=== PATIENT | female | born 1955 ===

== ENCOUNTER → 2018-06-19 | Outpatient (CLI) | payer OTHER ==
[2018-06-19 13:59] LABS: Source, Urine Clean Catch
[2018-06-19 15:28] LABS: Appearance, Urine Clear (Clear); Bilirubin, Urine Neg (Neg); Blood, Urine Neg (Neg); Color, Urine Yellow (P-Yellow); Glucose Qualitative, Urine Neg (Neg); Ketones, Urine Neg (Neg); Leukocyte Esterase, Urine Neg (Neg); Nitrite, Urine Neg (Neg); Protein, Urine Neg (Neg); Specific Gravity, Urine 1.005 (1.003-1.022); Urobilinogen, Urine NORM (Normal)
== END ==
LOC: LAB 09:16 → LAB SHORT 09:16
PROVIDERS: Obstetrics & Gynecology
DX: R35.0 Frequency of micturition (principal)
CPT/HCPCS: 81003

== ENCOUNTER → 2019-08-15 | Outpatient (CLI) | payer OTHER ==
[2019-08-15 11:16] LABS: Source, Urine Clean Catch
[2019-08-15 14:31] LABS: Bilirubin, Urine Neg (Neg); Blood, Urine Neg (Neg); Glucose Qualitative, Urine Neg (Neg); Ketones, Urine Neg (Neg); Leukocyte Esterase, Urine Neg (Neg); Nitrite, Urine Neg (Neg); Protein, Urine Neg (Neg); Urobilinogen, Urine NORM (Normal)
[2019-08-15 14:35] LABS: Appearance, Urine Clear (Clear); Color, Urine Pale Yellow (P-Yellow)
[2019-08-16 14:49] LABS: Candida species (DNA Probe) Negative (NEGATIVE); G. vaginalis (DNA Probe) Negative (NEGATIVE); T. vaginalis (DNA Probe) Negative (NEGATIVE)
== END ==
LOC: LAB SHORT 10:45 → LAB 10:45
PROVIDERS: Obstetrics & Gynecology
DX: N76.0 Acute vaginitis (principal); N32.81 Overactive bladder
CPT/HCPCS: 81003; 87480; 87510; 87660

== ENCOUNTER → 2022-03-10 | Outpatient (CLI) | payer OTHER ==
[2022-03-11 13:59] LABS: Candida species (DNA Probe) Positive (NEGATIVE); G. vaginalis (DNA Probe) Negative (NEGATIVE); T. vaginalis (DNA Probe) Negative (NEGATIVE)
== END | disposition home or self-care (01) ==
LOC: LAB SHORT 13:44
PROVIDERS: Obstetrics & Gynecology
DX: N76.0 Acute vaginitis (principal)
CPT/HCPCS: 87480; 87510; 87660

== ENCOUNTER 2022-05-02 13:45 | Emergency (ER) | payer OTHER ==
[~2022-05-02] VITALS: Ht 157.5 cm; Wt 63.5 kg
[2022-05-02] MEDS ORDERED: NEURONTIN300 MG PO (14:25)
[2022-05-02] MEDS ORDERED: ALLERGY RELIEF5 M1 PO (14:26)
[2022-05-02] MEDS ORDERED: PYRI100 PO (14:26)
[2022-05-02] MEDS ORDERED: CENTRUM SILVER1 EAC2 PO (14:26)
[2022-05-02] MEDS ORDERED: CREON DR 12,001 EACH PO (14:27)
[2022-05-02] MEDS ORDERED: Echinacea400 MG PO (14:28)
[2022-05-02] MEDS ORDERED: Garlic500 MG PO (14:29)
[2022-05-02] MEDS ORDERED: FISH OIL-VIT D1 EACH PO (14:29)
[2022-05-02] MEDS ORDERED: GEMF600 PO (14:30)
[2022-05-02] MEDS ORDERED: Magnesium250 MG PO (14:30)
[2022-05-02] MEDS ORDERED: HAIR, SKIN AND1 EAC3 PO (14:30)
[2022-05-02] MEDS ORDERED: St. John's Wor300 M1 PO (14:31)
[2022-05-02] MEDS ORDERED: Vitamin B Comple1 EA PO (14:31)
[2022-05-02 14:36] LABS: Hematocrit 39.2 % (33.0-51.0); Hemoglobin 13.3 g/dL (11.5-16.0); Mean Corpuscular HGB 31.7 pg (26.0-34.0); Mean Corpuscular HGB Conc 33.9 g/dL (31.5-36.5); Mean Corpuscular Volume 93 fL (80-100); Mean Platelet Volume 10.6 fL (9.1-12.4); Platelet Count 433 K/mm3 (150-400); RDW Coefficient Variation 13.6 % (11.7-14.2); RDW Standard Deviation 45.8 fL (35.1-46.3); White Blood Cell Count 9.08 K/mm3 (4.00-11.30)
[2022-05-02 14:59] LABS: Albumin, Blood 3.7 g/dL (3.4-5.0); Albumin/Globulin Ratio 1.2 (0.8-1.8); Bilirubin, Total 0.5 mg/dL (0.1-1.0); Bun/Creatinine Ratio 27.2 (12.0-20.0); Calcium, Blood 9.6 mg/dL (8.5-10.1); Creatinine, Blood 0.59 mg/dL (0.40-1.00); Globulin, Blood 3.2 g/dL (2.2-4.0); Potassium, Blood 3.9 mmol/L (3.5-5.5); Total Protein, Blood 6.9 g/dL (6.4-8.2)
[2022-05-02 15:00] LABS: BASOPHILS ABSOLUTE MAN 0.36 K/mm3 (0.00-0.23); BASOPHILS PERCENT MAN 4 % (0-2); EOSINOPHILS ABSOLUTE MAN 0.36 K/mm3 (0.00-0.68); EOSINOPHILS PERCENT MAN 4 % (0-6); LYMPHOCYTES % ATYPICAL MANUAL 1 % (0-0); LYMPHOCYTES ABSOLUTE MAN 3.35 K/mm3 (0.84-5.20); LYMPHOCYTES PERCENT MAN 36 % (21-46); MONOCYTES ABSOLUTE MAN 1.08 K/mm3 (0.16-1.47); MONOCYTES PERCENT MAN 12 % (4-13); SEG NEUTROPHILS PERCENT MAN 43 % (41-73); TOTAL CELLS COUNTED 100
[2022-05-02 15:18] LABS: Magnesium, Blood 2.3 mg/dL (1.6-2.4)
[2022-05-02 15:24] LABS: Thyroid Stimulating Hormone 0.493 uIU/mL (0.360-4.800)
== END 2022-05-02 19:05 | disposition home or self-care (01) ==
LOC: ER 13:45
PROVIDERS: Physician Assistant; Student in an Organized Health Care Education/Training Program
DX: R07.9 Chest pain, unspecified (principal); R42 Dizziness and giddiness; Z88.0 Allergy status to penicillin
CPT/HCPCS: 36415; 70450; 71046; 80053; 83735; 83880; 84443; 84484; 85025; 85379; 93005; 93010; 96374; 96375; 99285-25; A9270; J1200; J2765; J7030

== ENCOUNTER 2023-12-06 00:24 | Observation (INO) | payer OTHER ==
[~2023-12-06] VITALS: Ht 154.9 cm; Wt 56.7 kg
[~2023-12-06 00:24] MED LIST: ALLERGY RELIEF5 M1 PO; CENTRUM SILVER1 EAC2 PO; CREON DR 12,001 EACH PO; Echinacea400 MG PO; FISH OIL 1,0001 EA10 PO; GEMF600 PO; Garlic500 MG PO; HAIR, SKIN AND1 EAC3 PO; Magnesium250 MG PO; NEURONTIN300 MG PO; PYRI100 PO; St. John's Wor300 M1 PO; Vitamin B Comple1 EA PO
[2023-12-06] MEDS ORDERED: MethylPREDNISolone Sod Succ 125 MG Vial IV ONE (00:40)
[2023-12-06] MEDS ORDERED: Ketorolac Tromethamine 30mg Vial IV ONE (00:55)
[2023-12-06] MEDS ORDERED: FentaNYL Citrate 50 MCG/ML 2 ML Injection IV PRN ×2 (01:50→05:00)
[2023-12-06] MEDS ORDERED: Famotidine 10 MG/ML 2ML Vial IV ONE (01:50)
[2023-12-06] MEDS ORDERED: DiphenhydrAMINE HCl 50 MG/ML 1ML Vial IV ONE (01:50)
[2023-12-06 02:24] LABS: Albumin, Blood 3.2 g/dL (3.4-5.0); Bilirubin, Total 0.3 mg/dL (0.1-1.0); Bun/Creatinine Ratio 36.7 (12.0-20.0); Creatinine, Blood 0.57 mg/dL (0.40-1.00); Globulin, Blood 3.1 g/dL (2.2-4.0); Potassium, Blood 4.2 mmol/L (3.5-5.5); Total Protein, Blood 6.3 g/dL (6.4-8.2)
[2023-12-06 02:37] LABS: BASOPHILS ABSOLUTE AUTO 0.02 K/mm3 (0.00-0.23); BASOPHILS PERCENT AUTO 0 % (0-2); EOSINOPHILS PERCENT AUTO 2 % (0-6); Hematocrit 45.6 % (33.0-51.0); Hemoglobin 15.7 g/dL (11.5-16.0); IMMATURE GRAN ABSOLUTE AUTO 0.08 K/mm3 (0.00-0.10); IMMATURE GRAN PERCENT AUTO 0 % (0-1); LYMPHOCYTES ABSOLUTE AUTO 1.01 K/mm3 (0.84-5.20); LYMPHOCYTES PERCENT AUTO 6 % (21-46); MONOCYTES ABSOLUTE AUTO 0.96 K/mm3 (0.16-1.47); MONOCYTES PERCENT AUTO 5 % (4-13); Mean Corpuscular HGB 31.2 pg (26.0-34.0); Mean Corpuscular HGB Conc 34.4 g/dL (31.5-36.5); Mean Corpuscular Volume 91 fL (80-100); Mean Platelet Volume 9.8 fL (9.1-12.4); NEUTROPHILS ABSOLUTE AUTO 15.65 K/mm3 (1.96-9.15); NEUTROPHILS PERCENT AUTO 87 % (41-73); Platelet Count 405 K/mm3 (150-400); RDW Coefficient Variation 12.9 % (11.7-14.2); RDW Standard Deviation 42.7 fL (35.1-46.3); Red Blood Cell Count 5.03 M/mm3 (3.80-5.20); White Blood Cell Count 18.02 K/mm3 (4.00-11.30)
[2023-12-06] MEDS ORDERED: Morphine Sulfate 4 MG/1 ML Injection IV ONE (04:30)
[2023-12-06] MEDS ORDERED: Ondansetron HCl 2 MG / ML 2ML Vial IV ONE (04:30)
[2023-12-06] MEDS ORDERED: NS 1,000 ML IV SCH (04:45)
[2023-12-06] MEDS ORDERED: FLU VACC TS2024-25(6MOS UP)/PF 45 MCG/0.5 ML SYRINGE IM SCH (05:00)
[2023-12-06] MEDS ORDERED: HYDROcodone 10-APAP 325 TAB PO PRN (05:05)
[2023-12-06] MEDS ORDERED: Acetaminophen 325 MG TABLET PO PRN (05:05)
[2023-12-06] MEDS ORDERED: Naloxone HCl 0.4MG / ML 1ML Vial IV PRN (05:05)
[2023-12-06] MEDS ORDERED: DiphenhydrAMINE HCl 50 MG/ML 1ML Vial IV PRN (05:10)
[2023-12-06] MEDS ORDERED: MethylPREDNISolone Sod Succ 125 MG Vial IV SCH (06:00)
[2023-12-06] MEDS ORDERED: Ketorolac Tromethamine 15mg Vial IV PRN (06:05)
--- NOTE | 2023-12-06 06:33 | NUR ---
LETHAAR RECEIVED FROM [facility] TO@ER @0605. PT IS ON HER WAY TO THE MEDICAL FLOOR RM#[id number]. WILL HANDOFF TO THE INCOMING SHIFT NURSE.
[2023-12-06 06:40] VITALS: BP 122/67
[2023-12-06] MEDS ORDERED: Docusate Sodium 100 MG Cap PO SCH (09:00)
[2023-12-06] MEDS ORDERED: Sennosides 8.6 MG Tab PO SCH (09:00)
[2023-12-06 09:27] LABS: BASOPHILS ABSOLUTE AUTO 0.02 K/mm3 (0.00-0.23); BASOPHILS PERCENT AUTO 0 % (0-2); EOSINOPHILS PERCENT AUTO 0 % (0-6); Hematocrit 45.5 % (33.0-51.0); Hemoglobin 15.5 g/dL (11.5-16.0); IMMATURE GRAN ABSOLUTE AUTO 0.07 K/mm3 (0.00-0.10); IMMATURE GRAN PERCENT AUTO 0 % (0-1); LYMPHOCYTES ABSOLUTE AUTO 0.53 K/mm3 (0.84-5.20); LYMPHOCYTES PERCENT AUTO 3 % (21-46); MONOCYTES ABSOLUTE AUTO 0.11 K/mm3 (0.16-1.47); MONOCYTES PERCENT AUTO 1 % (4-13); Mean Corpuscular HGB 31.4 pg (26.0-34.0); Mean Corpuscular HGB Conc 34.1 g/dL (31.5-36.5); Mean Corpuscular Volume 92 fL (80-100); Mean Platelet Volume 9.8 fL (9.1-12.4); NEUTROPHILS ABSOLUTE AUTO 15.76 K/mm3 (1.96-9.15); NEUTROPHILS PERCENT AUTO 96 % (41-73); Platelet Count 429 K/mm3 (150-400); RDW Coefficient Variation 12.8 % (11.7-14.2); RDW Standard Deviation 43.1 fL (35.1-46.3); Red Blood Cell Count 4.93 M/mm3 (3.80-5.20); White Blood Cell Count 16.49 K/mm3 (4.00-11.30)
[2023-12-06 09:47] LABS: Albumin, Blood 3.4 g/dL (3.4-5.0); Bilirubin, Total 0.5 mg/dL (0.1-1.0); Bun/Creatinine Ratio 26.6 (12.0-20.0); Calcium, Blood 8.7 mg/dL (8.5-10.1); Creatinine, Blood 0.56 mg/dL (0.40-1.00); Globulin, Blood 3.4 g/dL (2.2-4.0); Potassium, Blood 4.7 mmol/L (3.5-5.5); Total Protein, Blood 6.8 g/dL (6.4-8.2)
--- NOTE | 2023-12-06 11:58 | NUR ---
PER DR ROSS, DERM CONSULT NEEDED. SPOKE WITH [facility] WHO REQUESTED FACE SHEET BE SENT TO THEIR OFFICE FOR INFO. [phone].
--- NOTE | 2023-12-06 18:50 | NUR ---
364: END OF SHIFT SUMMARY: A&Ox4. PLEASANT AND COOPERATIVE WITH CARE. CALLS APPROPRIATELY AND IS ABLE TO ADVOCATE NEEDS EFFECTIVELY. AMBULATES INDEPENDENTLY IN ROOM. CONTINENT OF BOWEL AND BLADDER. TAKES MEDS WHOLE WITH FLUIDS. C / O PAIN AND DISCOMFORT TO SKIN. RAISED, RED, PATCHY RASH COVERING 90% OF BODY. ROUTINE IV STEROIDS AND PRN DIPHENHYDRAMINE. DIFFICULTY CONTROLLING PAIN THIS MORNING, BUT IV WAS NOTED TO BE DISCONNECTED FROM TUBING AND HAS BEEN MUCH MORE EFFECTIVE SINCE REPLACING. DERM CONSULTED TODAY AND WILL BE IN TO DO Bx TOMORROW. SEVERAL FAMILY AND FRIENDS TO BEDSIDE TO VISIT TODAY. BED IN LOWEST POSITION. CALL LIGHT WITHIN REACH. ALL NEEDS MET. REPORT TO ONCOMING NURSE.
[2023-12-06 19:12] VITALS: BP 128/57
--- NOTE | 2023-12-06 20:05 | NUR ---
PT REQUESTS REGULAR DIET, CHANGED FROM CONSISTENT CARB DIET TO REGULAR. PT STATES CONTROLS BG BY DIET.
--- NOTE | 2023-12-06 20:11 | NUR ---
PT REFUSES CONTINUOUS PULSE OX MONITORING D/T NOT GETTING SLEEP FOR TWO DAYS, PER PT REPORT. PT SIGNED A FORM OF THE REFUSAL, RT BY THE BEDSIDE.
[2023-12-07] MEDS ORDERED: HYDROCODONE-AC1 EA19 PO (00:38)
[2023-12-07] MEDS ORDERED: ESZOPICLONE2 MG PO (00:39)
--- NOTE | 2023-12-07 03:15 | NUR ---
SHIFT SUMMARY PT IS A&O X4, COOPERATIVE WITH CARE, ABLE TO MAKE HER NEEDS KNOWN. PT C/O 08/19 PAIN T/O THE BODY, ITCHING AND BURNING. FENTANYL 25MCG IV PRN ADMINISTERED ORDERED X1 DURING THIS SHIFT. BENADRYL HELPFUL PER PT REPORT. PT HAS REDDENED AREAS AROUND GROIN, BACK, ABDOMEN AND EXTREMETIES. NO ACUTE EVENTS DURING THIS SHIFT. BED AT THE LOWEST POSITION, CALL LIGHT W/I REACH.
[2023-12-07 04:43] VITALS: BP 111/53
[2023-12-07 05:36] LABS: BASOPHILS ABSOLUTE AUTO 0.03 K/mm3 (0.00-0.23); BASOPHILS PERCENT AUTO 0 % (0-2); EOSINOPHILS ABSOLUTE AUTO 0.01 K/mm3 (0.00-0.68); EOSINOPHILS PERCENT AUTO 0 % (0-6); Hematocrit 39.1 % (33.0-51.0); Hemoglobin 13.5 g/dL (11.5-16.0); IMMATURE GRAN PERCENT AUTO 1 % (0-1); LYMPHOCYTES ABSOLUTE AUTO 0.66 K/mm3 (0.84-5.20); LYMPHOCYTES PERCENT AUTO 4 % (21-46); MONOCYTES ABSOLUTE AUTO 0.51 K/mm3 (0.16-1.47); MONOCYTES PERCENT AUTO 3 % (4-13); Mean Corpuscular HGB 31.8 pg (26.0-34.0); Mean Corpuscular HGB Conc 34.5 g/dL (31.5-36.5); Mean Corpuscular Volume 92 fL (80-100); Mean Platelet Volume 10.3 fL (9.1-12.4); NEUTROPHILS ABSOLUTE AUTO 17.27 K/mm3 (1.96-9.15); NEUTROPHILS PERCENT AUTO 93 % (41-73); Platelet Count 391 K/mm3 (150-400); RDW Coefficient Variation 12.9 % (11.7-14.2); RDW Standard Deviation 42.8 fL (35.1-46.3); Red Blood Cell Count 4.24 M/mm3 (3.80-5.20); White Blood Cell Count 18.58 K/mm3 (4.00-11.30)
[2023-12-07 06:16] LABS: Bun/Creatinine Ratio 32.8 (12.0-20.0); Calcium, Blood 9.1 mg/dL (8.5-10.1); Creatinine, Blood 0.46 mg/dL (0.40-1.00); Potassium, Blood 4.5 mmol/L (3.5-5.5)
[2023-12-07 07:32] VITALS: BP 103/69
[2023-12-07] MEDS ORDERED: Enoxaparin 40 MG/0.4 ML SYR SC SCH (09:00)
[2023-12-07] MEDS ORDERED: TRIAMCINOLONE ACET 0.1% TOP PRN (09:00)
[2023-12-07] MEDS ORDERED: HYDROcodone 5-APAP 325 TAB PO PRN (10:35)
--- NOTE | 2023-12-07 11:36 | NUR ---
PATIENT CALLED AFTER SHOWER STATING HER IV WAS LEAKING. ASKED IF IV COULD BE REMOVED. PER DR ROSS, OKAY TO CHANGE DIPHENHYDRAMINE TO PO AND REMOVE IV.
[2023-12-07] MEDS ORDERED: DiphenhydrAMINE HCl 50 MG Cap PO PRN (11:55)
[2023-12-07 15:28] VITALS: BP 125/58
--- NOTE | 2023-12-07 18:00 | NUR ---
"Spiritual Care | Pt. Request Pt. is awake in her bed when she welcomes my visit. A very lengthy visit when matters of salvador abd belief are considered and well as the Pts. zest for life. Listen with empathy and interest. Rapport is established. Prayed with the Pt. Pt. displayed evidence of resiliance. Pt. verbalized gratitude for the spiritual care visit."
--- NOTE | 2023-12-07 19:26 | NUR ---
DAY SHIFT SUMMARY: A&Ox4. PLEASANT AND COOPERATIVE WITH CARE. CALLS APPROPRIATELY AND IS ABLE TO ADVOCATE NEEDS EFFECTIVELY. ROOM AIR WITHOUT DYPSNEA. MEDS WHOLE WITH FLUIDS. IV REMOVED TODAY D/T TENDERNESS. PER DR ROSS, ALL MEDS CHANGED TO PO AND "NO IV ACCESS" ORDER AUTHORIZED. INDEPENDENT WITHIN ROOM. ORIENTED TO OWN ABILITIES. DECLINED Bx TODAY WITH DERM, STATING SHE WANTS TO "DEAL WITH ABDOMINAL STUFF FIRST". RASH IS SIGNIFICANTLY IMPROVED FROM YESTERDAY AND DID NOT REQUEST PAIN MEDS AT ALL. USING TOPICAL TAC OINTMENT WITH RELIEF. ANTICIPATE DC TOMORROW. BED IN LOWEST POSITION. CALL LIGHT WITHIN REACH. ALL NEEDS MET. REPORT TO ONCOMING NURSE.
[2023-12-07 20:09] VITALS: BP 128/63
[2023-12-07] MEDS ORDERED: DiphenhydrAMINE HCL/Zinc Acet Cream TOP PRN (23:55)
--- NOTE | 2023-12-08 04:14 | NUR ---
SHIFT SUMMARY ADMITTED FOR PAIN/RASH FROM OUTPATIENT CT CONTRAST. FULL CODE. PAIN RX AND BENEDRYL PO RX GIVEN THIS SHIFT X2 DOSES EACH. BENEDRYL CREAM ORDERED AND APPLIED TOPICALLY THIS SHIFT. KENALOG CREAM APPLIED AT BEGINNING OF SHIFT, BUT THE PATIENT DENIED THAT THE KENALOG WAS EFFECTIVE. SHE STATED THAT HER RASH IS MUCH MORE ITCHY THIS SHIFT THAN ON THE PREVIOUS SHIFT. SHE IS QUITE RED THROUGH HER TRUNK - FRONT AND BACK, BUTTOCKS, BUE AND BLE, AND FACE. THIS RASH IS WARM TO THE TOUCH. DERMATOLOGY CONSULT IS DR. SCHAFER. PT IS INDEPENDENT IN ROOM. ON RA. A&O X4.
[2023-12-08 04:46] VITALS: BP 117/68
[2023-12-08 07:43] VITALS: BP 128/62
[2023-12-08] MEDS ORDERED: Famotidine 20 MG Tab PO SCH (11:00)
[2023-12-08] MEDS ORDERED: Methylprednisolone 4 MG Tab PO SCH (11:00)
[2023-12-08] MEDS ORDERED: Loratadine 10 MG Tab PO SCH (11:27)
[2023-12-08 16:45] VITALS: BP 123/65
--- NOTE | 2023-12-08 18:03 | NUR ---
SHIFT SUMMARY PT AWAKE AT START OF SHIFT, FOR REPORT. PT C/O RASH INCREASING FROM YESTERDAY AFTER IV SOLUMEDROL D/C'D. DR ROSS IN TO SEE PT THIS AM; NEW ORDERS PLACED. PT SEEMS TO BE MUCH BETTER AFTER NEW MEDS GIVEN; SEE CHART. PT UP TO SHOWER THIS AFTERNOON. VISITORS IN THRU OUT THE DAY AND EVENING. NO C/O PAIN, JUST ITCHING AT START OF SHIFT. POSSIBLE D/C TO HOME TOMORROW. DENIES FURTHER NEEDS AT THIS TIME. CALL LT IN REACH.
[2023-12-08 19:57] VITALS: BP 130/67
[2023-12-09 02:20] VITALS: BP 109/59
[2023-12-09] MEDS ORDERED: DiphenhydrAMINE HCL 25 MG Cap PO ONE (04:20)
--- NOTE | 2023-12-09 04:56 | NUR ---
PT C/O ITCHING EARLY IN HE SHIFT. BENEDRYL CREAM APPLIED CREAM APPLIED. PT USED LIMITED APLICATION TO UPPER LEG STATING, " I WANT TO CHECK AND SEE WHAT REACTION I MIGHT HAVE. " BENEDRYL PO GIVEN AT 2330 PER PRN ORDERS. PT RESTED QUIETLY. AWAKE AT 0430 C/O ITCHING. PT ANXIOS AND RESTLESS REQUESTING PO BENEDRYL. TOPICAL BENEDRYL APPLIED AND MD NOTIFIED. ONE TIME ORDER FOR 25MG BENEDRYL. MED GIVEN. WILL CONTINUE TO MONITOR.
[2023-12-09 07:43] VITALS: BP 139/66
[2023-12-09] MEDS ORDERED: Loratadine 5 MG/5 ML 5MLUDC PO SCH (09:00)
[2023-12-09 10:42] VITALS: BP 124/66
[2023-12-09] MEDS ORDERED: Loratadine10 MG PO (10:46)
[2023-12-09] MEDS ORDERED: Benadryl Itch28.3 G1 TOP (10:47)
[2023-12-09] MEDS ORDERED: Acetaminophen325 M1 PO (10:47)
[2023-12-09] MEDS ORDERED: DIPH50 PO (10:47)
[2023-12-09] MEDS ORDERED: SENN187 PO (10:48)
[2023-12-09] MEDS ORDERED: FAMO20 PO (10:48)
[2023-12-09] MEDS ORDERED: Triamcinolone A15 G3 TOP (10:49)
[2023-12-09] MEDS ORDERED: PRED20 PO (10:49)
--- NOTE | 2023-12-09 15:24 | NUR ---
PT AWAKE AT START OF SHIFT, WATCHING TV. ITCHING AND RASH IMPROVING. DR ROSS IN TO SEE PT AND DISCUSS D/C PLANS. PT ABLE TO GO HOME. MEDS FAXED PER PT REQUEST. PT ABLE TO CALL FRIEND TO COME AND PICK HER UP. D/C ORDERS DISCUSSED WITH PT; VERBALIZED UNDERSTANDING. PT ASSISTED OUT TO FRIENDS CAR VIA W/C. FRIEND TAKING ALL BELONGINGS AND BURDEN.
== END 2023-12-09 14:49 | disposition home or self-care (01) ==
LOC: ER 00:24 → MEDS 00:25
PROVIDERS: Emergency Medicine; Internal Medicine; ADMIT Student in an Organized Health Care Education/Training Program
DX: L27.0 Generalized skin eruption due to drugs and medicaments taken internally (principal); T50.8X5A Adverse effect of diagnostic agents, initial encounter; E11.9 Type 2 diabetes mellitus without complications; M79.7 Fibromyalgia; Z91.041 Radiographic dye allergy status; Z88.0 Allergy status to penicillin; Z79.899 Other long term (current) drug therapy
CPT/HCPCS: 36415; 80048; 80053; 85025; 94762; 96361; 96374; 96375; 96376; 99285-25; A9270; G0378; J1200; J1885; J2270; J2405; J2919; J3010; J7030; J7509

== ENCOUNTER 2024-05-27 12:43 | Emergency (ER) | payer OTHER ==
[~2024-05-27] VITALS: Ht 167.6 cm; Wt 65.8 kg
[~2024-05-27 12:43] MED LIST changes: +Acetaminophen325 M1 PO; +Benadryl Itch28.3 G1 TOP; +DIPH50 PO; +ESZOPICLONE2 MG PO; +FAMO20 PO; +HYDROCODONE-AC1 EA19 PO; +Loratadine10 MG PO; +PRED20 PO; +SENN187 PO; +Triamcinolone A15 G3 TOP
[2024-05-27] MEDS ORDERED: NS 1,000 ML IV ONE (12:59)
[2024-05-27] MEDS ORDERED: NS 1,000 ML IV SCH ×2 (13:10→16:25)
[2024-05-27 13:25] LABS: BASOPHILS ABSOLUTE AUTO 0.06 K/mm3 (0.00-0.23); BASOPHILS PERCENT AUTO 1 % (0-2); EOSINOPHILS ABSOLUTE AUTO 0.15 K/mm3 (0.00-0.68); EOSINOPHILS PERCENT AUTO 1 % (0-6); Hemoglobin 8.8 g/dL (11.5-16.0); IMMATURE GRAN PERCENT AUTO 1 % (0-1); LYMPHOCYTES ABSOLUTE AUTO 1.92 K/mm3 (0.84-5.20); LYMPHOCYTES PERCENT AUTO 17 % (21-46); MONOCYTES ABSOLUTE AUTO 0.67 K/mm3 (0.16-1.47); MONOCYTES PERCENT AUTO 6 % (4-13); Mean Corpuscular HGB 31.2 pg (26.0-34.0); Mean Corpuscular HGB Conc 30.3 g/dL (31.5-36.5); Mean Corpuscular Volume 103 fL (80-100); Mean Platelet Volume 9.6 fL (9.1-12.4); NEUTROPHILS ABSOLUTE AUTO 8.76 K/mm3 (1.96-9.15); NEUTROPHILS PERCENT AUTO 75 % (41-73); Platelet Count 545 K/mm3 (150-400); RDW Coefficient Variation 14.2 % (11.7-14.2); RDW Standard Deviation 53.6 fL (35.1-46.3); Red Blood Cell Count 2.82 M/mm3 (3.80-5.20); White Blood Cell Count 11.66 K/mm3 (4.00-11.30)
[2024-05-27] MEDS ORDERED: Lactated Ringer's 1,000 ML IV ONE (13:32)
[2024-05-27 13:35] LABS: Source, Urine Clean Catch
[2024-05-27] MEDS ORDERED: Pantoprazole Sodium 40 MG in NS 50 ML IV SCH (13:35)
[2024-05-27] MEDS ORDERED: Pantoprazole Sodium 40 MG Injection IV ONE (13:35)
[2024-05-27 13:37] LABS: Bilirubin, Urine Neg (Neg); Blood, Urine Neg (Neg); Color, Urine Yellow (P-Yellow); Glucose Qualitative, Urine 4+ (Neg); Ketones, Urine Neg (Neg); Leukocyte Esterase, Urine Neg (Neg); Nitrite, Urine Neg (Neg); Protein, Urine 2+ (Neg); Urobilinogen, Urine NORM (Normal)
[2024-05-27 13:55] LABS: Albumin, Blood 2.8 g/dL (3.4-5.0); Albumin/Globulin Ratio 0.9 (0.8-1.8); Bilirubin, Total 0.3 mg/dL (0.1-1.0); Bun/Creatinine Ratio 44.9 (12.0-20.0); Calcium, Blood 8.4 mg/dL (8.5-10.1); Creatinine, Blood 0.58 mg/dL (0.40-1.00); Globulin, Blood 3.2 g/dL (2.2-4.0); Magnesium, Blood 2.1 mg/dL (1.6-2.4); Potassium, Blood 4.7 mmol/L (3.5-5.5)
[2024-05-27 14:05] LABS: Amorphous Light (0-Heavy); Appearance, Urine Hazy (Clear); Bacteria Mod /hpf; Mucus Mod (0-Heavy); Red Blood Cells, Urine 0-2 /hpf (0-2); Squamous Epithelial Cells Rare /hpf (Few); White Blood Cells, Urine 0-2 /hpf (0-5)
[2024-05-27] MEDS ORDERED: CefTRIAXone Sodium 2,000 MG in NS 100 ML IV ONE (14:30)
[2024-05-27] MEDS ORDERED: NEURONTIN300 MG (16:13)
[2024-05-27] MEDS ORDERED: OXYC5 (16:14)
[2024-05-27] MEDS ORDERED: ASPI81CH (16:14)
[2024-05-27] MEDS ORDERED: FARXIGA5 MG PO (16:16)
[2024-05-27] MEDS ORDERED: LORA10ER PO (16:17)
[2024-05-27] MEDS ORDERED: MOTION RELIEF25 MG (16:18)
[2024-05-27] MEDS ORDERED: NARCAN4 M1 (16:18)
[2024-05-27] MEDS ORDERED: Robaxin750 MG (16:18)
[2024-05-27] MEDS ORDERED: Triamcinolone A15 G3 TOP (16:19)
[2024-05-27] MEDS ORDERED: SPIR25 (16:19)
[2024-05-27] MEDS ORDERED: ZENPEP DR 40,01 EACH PO (16:20)
[2024-05-27 16:25] LABS: Prothrombin Time Results 10.7 Sec (9.7-11.5)
[2024-05-27 17:38] LABS: Source, Urine Foley catheter
[2024-05-27 17:54] LABS: Appearance, Urine Clear (Clear); Bilirubin, Urine Neg (Neg); Blood, Urine Neg (Neg); Color, Urine Yellow (P-Yellow); Glucose Qualitative, Urine 3+ (Neg); Ketones, Urine Neg (Neg); Leukocyte Esterase, Urine Neg (Neg); Nitrite, Urine Neg (Neg); Protein, Urine Neg (Neg); Urobilinogen, Urine NORM (Normal)
[2024-05-27 18:43] VITALS: BP 138/60
[2024-05-27 19:23] LABS: Hematocrit 27.5 % (33.0-51.0); Hemoglobin 9.2 g/dL (11.5-16.0)
== END 2024-05-27 19:17 | disposition short-term general hospital (02) ==
LOC: ER 12:43
PROVIDERS: Emergency Medicine
DX: K92.1 Melena (principal); R55 Syncope and collapse; R57.8 Other shock; D62 Acute posthemorrhagic anemia; E11.9 Type 2 diabetes mellitus without complications; Z79.891 Long term (current) use of opiate analgesic; Z79.1 Long term (current) use of non-steroidal anti-inflammatories (NSAID); Z79.899 Other long term (current) drug therapy; Z79.52 Long term (current) use of systemic steroids
CPT/HCPCS: 36415; 36430; 36556; 51702; 71045; 72170; 80053; 81001; 81003; 82271; 83605; 83690; 83735; 83880; 84484; 85014; 85018; 85025; 85610; 86850; 86900; 86901; 86923; 87040; 87086; 93005; 93010; 96361-59; 96365-59; 96375-59; 99285-25; C1751; J0696; J2470; J7030; J7060; J7120; P9016